=== PATIENT | male | born 1975 | race African-American/Black ===

== ENCOUNTER 2018-10-05 23:09 | Emergency (ER) | payer MEDICAID ==
[~2018-10-05] VITALS: Ht 167.6 cm; Wt 77.1 kg
[2018-10-05] MEDS ORDERED: Morphine Sulfate 4mg/ml Inj (IV/IM USE ONLY) IVP ONE (23:15)
--- NOTE | 2018-10-05 23:18 | Emergency Room Report ---
History of Present Illness General Chief Complaint: Syncope Source: Patient, EMS Present Illness HPI This is a 43-year-old male with no past medical history. He presents with chief complaint abdominal pain and syncope. Onset was about an hour ago. He had acute onset abdominal pain with several episodes of vomiting and diarrhea. When he stood up he had a syncopal episode. 911 was called. Pain is 10 out of 10. Sharp. Mid abdomen. Worse with movement. Worse with palpation. Never had this problem before. No injury with a syncope. Per EMS he was orthostatic. Blood pressure was normal but one day sent him up he became hypotensive. Denies any alcohol or drug use. Allergies: Coded Allergies: No Known Allergies (Unverified , 10/05/18) Patient History Past Medical History: none, see triage record, old chart reviewed Past Surgical History: none Pertinent Family History: none Social History: Reports: smoking; Denies: alcohol use, drug use Immunizations: other Reviewed Nursing Documentation: PMH: Agreed; PSxH: Agreed Nursing Documentation-PMH Past Medical History: No Stated History Review of Systems Eye: Denies: eye pain, blurred vision ENT: Denies: ear pain, nose congestion, throat swelling Respiratory: Denies: cough, shortness of breath Cardiovascular: Denies: chest pain, palpitations Gastrointestinal: Reports: abdominal pain; Denies: diarrhea, nausea, vomiting Musculoskeletal: Denies: back pain, joint pain Skin: Denies: rash Neurological: Denies: headache, numbness Endocrine: Denies: increased thirst, increased urine Hematologic/Lymphatic: Denies: easy bruising All Other Systems: negative except mentioned in HPI Physical Exam Vital Signs Date Time Temp Pulse Resp B/P (MAP) Pulse Ox O2 Delivery O2 Flow Rate FiO2 10/05/18 23:07 98.2 80 18 135/87 99 Room Air vitals normal Sp02 EP Interpretation: reviewed, normal General Appearance: well appearing, no apparent distress, alert Head: normocephalic, atraumatic Eyes: bilateral eye PERRL, bilateral eye EOMI ENT: hearing grossly normal, normal pharynx Neck: full range of motion, supple, no meningismus Respiratory: chest non-tender, lungs clear, normal breath sounds Cardiovascular #1: regular rate, rhythm, no murmur Gastrointestinal: no mass, no organomegaly, no bruit, non-distended, tenderness - Diffuse, guarding, decreased bowel sounds Musculoskeletal: back normal, gait/station normal, normal range of motion Psychiatric: mood/affect normal Skin: warm/dry Medical Decision Making Diagnostic Impression: Primary Impression: Syncope Qualified Codes: R55 - Syncope and collapse Additional Impressions: Colitis BRAXTON (acute kidney injury) Proteinuria Qualified Codes: R80.9 - Proteinuria, unspecified ER Course Patient presents with syncope secondary to hypotension from dehydration. Patient had abdominal pain with nausea vomiting and diarrhea. Creatinine is elevated. Patient received 2 L of fluids and antibiotics here. He felt better. No evidence of any obstruction. No evidence of acute appendicitis. We 'll discharge home. Recommend follow-up with primary care doctor for referral for colonoscopy. Lab Results Impression labs with elevated creatine EKG Diagnostic Results Rate: normal Rhythm: NSR ST Segments: no acute changes Rhythm Strip Diag. Results EP Interpretation: yes Rate: 76 Rhythm: NSR, no PVC's, no ectopy CT/MRI/US Diagnostic Results CT/MRI/US Diagnostic Results : Imaging Test Ordered: CT Abdomen pelvis Impression Read by radiologist. Diffuse colitis. Last Vital Signs Date Time Temp Pulse Resp B/P (MAP) Pulse Ox O2 Delivery O2 Flow Rate FiO2 10/05/18 23:07 98.2 80 18 135/87 99 Room Air Status: improved Disposition: HOME, SELF-CARE Condition: Stable Scripts Hydrocodone/Acetaminophen 5-325* (HYDROCODONE/ACETAMINOPHEN 5-325*) 1 Each Tablet 1 TAB ORAL Q6H PRN for For Pain, #10 TAB 0 Refills Prov: Mike Lacy MD 10/06/18 Metronidazole* (FLAGYL*) 500 Mg Tablet 500 MG ORAL BID, #14 TAB Prov: Mike Lacy MD 10/06/18 Ciprofloxacin Hcl* (CIPROFLOXACIN HCL*) 500 Mg Tablet 500 MG ORAL Q12H, #14 TAB 0 Refills Prov: Mike Lacy MD 10/06/18 Additional Instructions: Advance diet as tolerated. Follow-up with your DrMarcelino in 2-3 days for recheck. You will need repeat blood tests on your kidney function. You may need a referral to see a central neurologist for colonoscopy. Return if symptom worsen. Mike Lacy MD Oct 05, 2018 23:18
--- NOTE | 2018-10-05 23:22 | NUR ---
ED Nurse Note: pt came from home and was brought in by [id number] due to complaints of abdominal pain, 06/16. per pt he has been also experiecnnig nausea and vomiting diarrhea, bowel sounds prsent in all quadrants. per emt pt was expereicning syncope but did not fall. prior to arrive pt was give normal saline 450ml. pt vss stable at the moment. at bedside
[2018-10-05 23:24] VITALS: BP 135/87
[2018-10-05 23:58] LABS: BASOPHILS % (AUTO) 0.4 % (0.0-2.0); EOSINOPHILS % (AUTO) 0.9 % (0.0-3.0); HEMATOCRIT 49.2 % (42.0-52.0); HEMOGLOBIN 16.6 G/DL (14.2-18.0); LYMPHOCYTES % (AUTO) 6.8 % (20.0-45.0); MEAN CORPUSCULAR VOLUME 83 FL (80-99); MONOCYTES % (AUTO) 8.5 % (1.0-10.0); NEUTROPHILS % (AUTO) 83.3 % (45.0-75.0); PLATELET COUNT 184 K/UL (150-450); RED BLOOD COUNT 5.91 M/UL (4.70-6.10); RED CELL DISTRIBUTION WIDTH 12.6 % (11.6-14.8); WHITE BLOOD COUNT 12.3 K/UL (4.8-10.8)
[2018-10-06] MEDS ORDERED: Morphine Sulfate 4mg/ml Inj (IV/IM USE ONLY) IVP ONE
[2018-10-06 00:01] LABS: ANION GAP 8 mmol/L (5-15); BLOOD UREA NITROGEN 13 mg/dL (7-18); CALCIUM 9.8 MG/DL (8.5-10.1); CARBON DIOXIDE 29 MMOL/L (21-32); CHLORIDE 106 MMOL/L (98-107); CREATININE 1.8 MG/DL (0.55-1.30); SODIUM 143 MMOL/L (136-145)
[2018-10-06 00:05] LABS: ALANINE AMINOTRANSFERASE 55 U/L (12-78); ALBUMIN 4.1 G/DL (3.4-5.0); ALBUMIN/GLOBULIN RATIO 1.1 (1.0-2.7); ALKALINE PHOSPHATASE 71 U/L (46-116); ASPARTATE AMINO TRANSFERASE 30 U/L (15-37); BILIRUBIN,TOTAL 0.6 MG/DL (0.2-1.0)
--- NOTE | 2018-10-06 01:00 | NUR ---
ED Nurse Note: Urine sample sent to lab.
[2018-10-06 01:07] VITALS: BP 129/88
[2018-10-06 01:17] LABS: APPEARANCE,URINE CLEAR; BILIRUBIN, URINE NEGATIVE (NEGATIVE); GLUCOSE, URINE (UA) NEGATIVE (NEGATIVE); KETONES,URINE NEGATIVE (NEGATIVE); LEUKOCYTE ESTERASE ,URINE NEGATIVE (NEGATIVE); NITRITE,URINE NEGATIVE (NEGATIVE); PH,URINE 5 (4.5-8.0); PROTEIN,URINE 3+ (NEGATIVE); UROBILINOGEN,URINE NORMAL MG/DL (0.0-1.0)
[2018-10-06 01:20] LABS: COLOR,URINE YELLOW
[2018-10-06] MEDS ORDERED: Ciprofloxacin 500mg tab ORAL ONE (01:30)
--- NOTE | 2018-10-06 01:48 | NUR ---
ED Nurse Note: Marcia,
--- NOTE | 2018-10-06 01:55 | NUR ---
ED Nurse Note: PT BP 83/54, NOTIFIED SHAHLAD, CARLOS MANUEL AWARE. NS BOLUS RUNNING. WILL AWAIT FURTHER ORDERS
[2018-10-06] MEDS ORDERED: METRONIDAZOLE500 MG ORAL (02:29)
[2018-10-06] MEDS ORDERED: CIPROFLOXACIN500 M2 ORAL (02:29)
[2018-10-06] MEDS ORDERED: HYDROCODON-ACE1 EA15 ORAL (02:29)
--- NOTE | 2018-10-06 02:47 | NUR ---
ED Nurse Note: PT BP STABILIZED RECHECK BP 119/73 AND HR 97
[2018-10-06 03:01] VITALS: BP 120/74
--- NOTE | 2018-10-06 03:03 | NUR ---
ED Nurse Note: PT IS D/C PER ERMD ORDER. PT WAS GIVEN DISCHARGE AND PRESCRIPTION INSTRUCTIONS PROVIDED. PT IS AOX4, AND WAS ABLE TO VERBALIZE UNDERSTANDING, ID BAND REMOVED AND IV SITE DISCONTINUED WITHOUT COMPLICATIONS. PT VSS. ABLE TO AMBULATE WITH STEADY GAIT. PT TOOK ALL BELONGINGS WHEN LEAVING ED. PT ACCOMPANIED BY
--- NOTE | 2018-10-06 10:17 | Diagnostic Imaging Report ---
Indication: Abdominal pain Technique: Continuous helical transaxial imaging of the abdomen and pelvis was obtained from the lung bases to the pubic symphysis. No intravenous contrast was administered. Coronal 2-D reformats were also obtained. Automatic Exposure Control was utilized. Total Dose length Product (DLP): 714.[address] Dose Index Volume (CTDIvol): 12.77 mGy Comparison: none Findings: Mild dependent posterior atelectasis demonstrated. Hypodensity in the liver within the right lobe nonspecific hiatal hernia noted. Gallbladder is unremarkable. The distended, fluid-filled small bowel loops are noted throughout the abdomen demonstrated. Consider enteritis or ileus. Appendix is seen and appears normal. There is no free fluid or free air. Bladder is unremarkable. There is no hydronephrosis. There are nonobstructive renal stones within the left kidney measuring 1 to 2 mm. There is diffuse mild thickening of the wall of the colon. Mild colitis not excluded although the colon is diffusely underdistended. IMPRESSION: Suspected enteritis with the diffuse, mild fluid-filled small bowel. Question of a mild [place] colitis versus under distention. Normal appendix Nonobstructive stones in the left kidney Hiatal hernia Dependent phenomena within the lung bases [facility] has communicated the preliminary results to the Emergency Department. Their findings are largely concordant with this report. The CT scanner at [facility] is accredited by the [employer] and the scans are performed using dose optimization techniques as appropriate to a performed exam including Automatic Exposure control.
--- NOTE | 2018-10-06 17:21 | Cardiology Report ---
APPROVED REPORT EKG Measurement Heart [id number] Normal sinus rhythm Normal ECG
== END 2018-10-06 03:03 | disposition home or self-care (01) ==
LOC: EDBD 23:09 → EMR 23:20
DX: R55 Syncope and collapse (principal); K52.9 Noninfective gastroenteritis and colitis, unspecified; N17.9 Acute kidney failure, unspecified; R80.9 Proteinuria, unspecified; E86.0 Dehydration; I95.9 Hypotension, unspecified; F17.200 Nicotine dependence, unspecified, uncomplicated
CPT/HCPCS: 36415; 74176; 80053; 81003; 83690; 85025; 93005; 96361; 96365; 96375; 96376; 99284; J2270; J2405